=== PATIENT | male | born 1995 | race Caucasian/White ===

== ENCOUNTER 2019-02-20 14:15 | Emergency (ER) | payer OTHER ==
[2019-02-20 14:27] VITALS: TEMP 97.8; O2SAT 98
[2019-02-20] MEDS ORDERED: KETOROLAC TROMETHAMINE 30 MG/ML SOL IM ONE (15:23)
[2019-02-20] MEDS ORDERED: KETOROLAC TROMETHAMINE 30 MG/ML SOL ONE (15:26)
[2019-02-20 17:25] VITALS: BP 158/98; PULSE 98; RESP 20
== END 2019-02-20 15:58 | disposition home or self-care (01) | DRG 603 ==
LOC: ED 14:15
DX: L03.90 Cellulitis, unspecified (principal)
CPT/HCPCS: 96372; 99282; J1885